=== PATIENT | female | born 1955 | race Two or more races ===

== ENCOUNTER 2025-01-02 07:25 | Outpatient (CLI) | payer OTHER ==
[~2025-01-02 07:25] MED LIST: ABILIFY5 MG PO; LOTREL 5-20 MG1 CAP PO; NEURONTIN300 MG PO; NEXIUM20 MG/PACK PO; TOPROL XL100 MG PO; ZOLOFT100 MG PO
== END 2025-01-02 07:27 | disposition home or self-care (01) ==
LOC: NUCLEAR 07:25
PROVIDERS: ATTEND Specialist
DX: R91.1 Solitary pulmonary nodule (principal); Z12.2 Encounter for screening for malignant neoplasm of respiratory organs; D38.5 Neoplasm of uncertain behavior of other respiratory organs
CPT/HCPCS: 78815; A9552